=== PATIENT | female | born 1995 | race Hispanic/Latino ===

== ENCOUNTER 2018-01-07 16:04 | Emergency (ER) | payer OTHER ==
[2018-01-07] MEDS: ACETAMINOPHEN 325 MG TAB PO (17:52)
== END 2018-01-07 18:00 | disposition home or self-care (01) ==
LOC: M ED 16:04
DX: O9A.212 Injury, poisoning and certain other consequences of external causes complicating pregnancy, second trimester (principal); S30.0XXA Contusion of lower back and pelvis, initial encounter; W17.89XA Other fall from one level to another, initial encounter; Y92.89 Other specified places as the place of occurrence of the external cause; Z3A.23 23 weeks gestation of pregnancy
CPT/HCPCS: 76815

== ENCOUNTER → 2020-08-14 | Outpatient (CLI) | payer SELFPAY ==
[~2020-08-14] MED LIST: PRENCHW PO; VITA200016 PO
== END ==
LOC: M LABSMTC 12:14
PROVIDERS: ATTEND Pediatrics
DX: Z20.822 Contact with and (suspected) exposure to COVID-19 (principal)

== ENCOUNTER 2021-11-22 11:24 | Emergency (ER) | payer OTHER ==
[~2021-11-22] VITALS: Ht 160 cm; Wt 77.3 kg
[2021-11-22] MEDS ORDERED: NS 1,000 ML IV ONE (14:00)
[2021-11-22] MEDS ORDERED: ACETAMINOPHEN 325 MG TAB PO ONE (14:05)
[2021-11-22 14:29] LABS: BASO % 0.4 % (0.0-1.0); EOS # 0.4 10^3/uL (0.0-0.5); EOS % 4.4 % (0.0-3.0); HEMOGLOBIN 13.4 g/dl (12.0-15.5); LYMPH # 3.6 10^3/uL (1.5-5.0); MEAN CORPUSCULAR HEMOGLOBIN 30.5 pg (27.0-33.0); MEAN CORPUSCULAR HGB CONC 35.3 g/dl (32.0-36.5); MEAN CORPUSCULAR VOLUME 86.4 fl (80.0-96.0); MONO # 0.7 10^3/uL (0.0-0.8); MONO % 6.7 % (2.0-8.0); NEUTROPHILS % 51.2 % (36.0-66.0); PLATELET COUNT, AUTOMATED 432 10^3/uL (150-450); WHITE BLOOD COUNT 9.7 10^3/uL (4.0-10.0)
[2021-11-22 15:01] LABS: ALBUMIN 4.1 GM/DL (3.2-5.2); BILIRUBIN,DIRECT 0.1 MG/DL (0.0-0.2); BILIRUBIN,TOTAL 0.4 MG/DL (0.2-1.0); TOTAL PROTEIN 7.8 GM/DL (6.4-8.2)
[2021-11-22 15:46] VITALS: BP 119/69
== END 2021-11-22 16:28 | disposition home or self-care (01) ==
LOC: M ED 11:24
DX: N92.0 Excessive and frequent menstruation with regular cycle (principal); M54.50 Low back pain, unspecified